=== PATIENT | male | born 1945 | race Caucasian/White ===

== ENCOUNTER 2020-04-21 09:00 | Outpatient (CLI) | payer MEDICARE, SELFPAY ==
--- NOTE | 2020-04-21 11:00 | NEURO_ITS ---
Patient Number: [id number] Impression: # Complains of hand numbness. # Bilateral Carpal Tunnel Syndrome, right more than left. # Left ulnar neuropathy across the elbow. # Abnormal needle/EMG exam in ulnar nerve distribution on the left. # Clinical correlation recommended. Nerve Conduction Studies Anti Sensory Summary Table Stim Site NR Peak (ms) P-T Amp (?V) Site1 Site2 Delta-P (ms) Dist (cm) John (m/s) Left Median Anti Sensory (2-3nd Digit) Wrist 4.1 31.2 Wrist 2-3nd Digit 4.1 14.0 34 Wrist 3.9 22.8 Wrist 2-3nd Digit 4.1 14.0 34 Right Median Anti Sensory (2-3nd Digit) Wrist 4.2 23.3 Wrist 2-3nd Digit 4.2 14.0 33 Wrist 4.1 9.7 Wrist 2-3nd Digit 4.2 14.0 33 Left Radial Anti Sensory (Base 1st Digit) Wrist 2.6 16.3 Wrist Base 1st Digit 2.6 0.0 Right Radial Anti Sensory (Base 1st Digit) Wrist 3.2 7.1 Wrist Base 1st Digit 3.2 0.0 Left Ulnar Anti Sensory (5th Digit) Wrist 3.3 24.7 Wrist 5th Digit 3.3 14.0 42 Right Ulnar Anti Sensory (5th Digit) Wrist 3.3 35.9 Wrist 5th Digit 3.3 14.0 42 Motor Summary Table Stim Site NR Onset (ms) O-P Amp (mV) Site1 Site2 Delta-0 (ms) Dist (cm) John (m/s) Left Median Motor (Abd Poll Brev) Wrist 3.7 4.3 Elbow Wrist 5.9 33.0 56 Elbow 9.6 4.0 Right Median Motor (Abd Poll Brev) Wrist 4.5 2.0 Elbow Wrist 5.5 31.0 56 Elbow 10.0 2.3 Left Ulnar Motor (Abd Dig Minimi) Wrist 3.2 5.6 A Elbow Wrist 6.7 32.0 48 A Elbow 9.9 5.2 B Elbow Wrist 4.8 27.0 56 B Elbow 8.0 4.6 Right Ulnar Motor (Abd Dig Minimi) Wrist 3.1 3.5 A Elbow Wrist 5.9 31.0 53 A Elbow 9.0 2.1 B Elbow Wrist 4.2 23.0 55 B Elbow 7.3 2.9 F Wave Studies NR F-Lat (ms) L-R F-Lat (ms) Left Median (Mrkrs) (Abd Poll Brev) 28.32 0.45 Right Median (Mrkrs) (Abd Poll Brev) 28.77 0.45 Left Ulnar (Mrkrs) (Abd Dig Min) 29.59 0.47 Right Ulnar (Mrkrs) (Abd Dig Min) 29.12 0.47 EMG Side Muscle Nerve Root Ins Act Fibs Amp Dur Recrt Comment Right 1stDorInt Ulnar C8-T1 Nml Nml Nml >12ms Reduced Right Ext Indicis Radial (Post Int) C7-8 Nml Nml Nml Nml Nml Right Ext Digitorum Radial (Post Int) C7-8 Nml Nml Nml Nml Nml Right BrachioRad Radial C5-6 Nml Nml Nml Nml Nml Right PronatorTeres Median C6-7 Nml Nml Nml Nml Nml Right Abd Poll Brev Median C8-T1 Nml Nml Nml Nml Nml Left 1stDorInt Ulnar C8-T1 Nml Nml Nml >12ms Reduced Left Ext Indicis Radial (Post Int) C7-8 Nml Nml Nml Nml Nml Left Ext Digitorum Radial (Post Int) C7-8 Nml Nml Nml Nml Nml Left BrachioRad Radial C5-6 Nml Nml Nml Nml Nml Left PronatorTeres Median C6-7 Nml Nml Nml Nml Nml Left Abd Poll Brev Median C8-T1 Nml Nml Nml Nml Nml Right ABD Dig Min Ulnar C8-T1 Nml Nml Nml >12ms Reduced Left ABD Dig Min Ulnar C8-T1 Nml Nml Nml >12ms Reduced Right Anconeus Radial C7-8 Nml Nml Nml Nml Nml Right Brachialis Musculocut C5-6 Nml Nml Nml Nml Nml Left Anconeus Radial C7-8 Nml Nml Nml Nml Nml Left Brachialis Musculocut C5-6 Nml Nml Nml Nml Nml MTDD
== END 2020-04-21 09:01 | disposition home or self-care (01) ==
PROVIDERS: PCP Internal Medicine; Visit Provider Internal Medicine
DX: G56.03 Carpal tunnel syndrome, bilateral upper limbs (principal); G56.22 Lesion of ulnar nerve, left upper limb
CPT/HCPCS: 95886; 95911

== ENCOUNTER → 2020-12-15 15:11 | Outpatient (CLI) | payer MEDICARE, SELFPAY ==
--- NOTE | ~2020-12-15 | XR_ITS ---
XR chest 2V 12/15/2020 15:30 Indication: Cough. No fever. Procedure: Two-view chest Comparison: 02/15/2019 Findings: There is biapical pleural thickening/scarring, unchanged. No focal air space disease, pulmo nary edema, pleural effusion or suspected pneumothorax. There are linear densities bilaterally in the lung bases which are vertically oriented, likely external to the patient. No definite pleural reflec tion to suggest pneumothorax on PA or lateral views. Impression: 1: No acute cardiopulmonary disease. Reviewed, dictated and finalized at location A. Impression: 1: No acute cardiopulmonary disease.
== END ==
PROVIDERS: PCP Internal Medicine; Visit Provider Internal Medicine
DX: R05 Cough (principal)
CPT/HCPCS: 71046

== ENCOUNTER 2020-12-24 12:53 | Outpatient (CLI) | payer MEDICARE, SELFPAY ==
--- NOTE | ~2020-12-24 | XR_ITS ---
EXAMINATION: XR hip LT min 2V DATE: 12/24/2020 13:57 INDICATION: Left hip pain. TECHNIQUE: 2 views of left hip were obtained. COMPARISON: Left hip radiographs 11/22/2014 FINDINGS: Bone alignment is normal. No fracture. There is moderate left hip osteoarthritis. IMPRESSION: 1. Moderate left hip osteoarthritis. Reviewed, dictated and finalized at location A.
--- NOTE | ~2020-12-24 | XR_ITS ---
EXAMINATION: XR thoracic spine 2V DATE: 12/24/2020 13:57 INDICATION: Back pain. TECHNIQUE: 2 views of thoracic spine were obtained. COMPARISON: Chest 2 views 09/24/2015 FINDINGS: There is kyphosis of thoracic spine. Vertebral body heights are normal. There is mildly dec reased disc height at multiple levels. There are endplate osteophytes at all levels. IMPRESSION: 1. Mild thoracic spondylosis. Reviewed, dictated and finalized at location A.
--- NOTE | ~2020-12-24 | XR_ITS ---
EXAMINATION: XR knee LT 3V DATE: 12/24/2020 13:57 INDICATION: Left knee pain. TECHNIQUE: 3 views of left knee were obtained. COMPARISON: Left knee radiographs 10/02/2006 FINDINGS: Bone alignment is normal. No fracture. There is mild tricompartmental osteoarthritis. No kn ee joint effusion. IMPRESSION: 1. Mild left knee osteoarthritis. Reviewed, dictated and finalized at location A.
--- NOTE | ~2020-12-24 | XR_ITS ---
EXAMINATION: XR hip RT min 2V DATE: 12/24/2020 13:57 INDICATION: Right hip pain. TECHNIQUE: 2 views of right hip were obtained. COMPARISON: Right hip radiographs 11/22/2014 FINDINGS: Bone alignment is normal. No fracture. There is moderate right hip osteoarthritis. IMPRESSION: 1. Moderate right hip osteoarthritis. Reviewed, dictated and finalized at location A.
--- NOTE | ~2020-12-24 | US_ITS ---
EXAMINATION: US carotid duplex BI DATE: 12/24/2020 13:27 INDICATION: Dizziness and giddiness TECHNIQUE: Grayscale, color Doppler, and pulsed Doppler images of the cervical carotid arteries were obtained. The degree of vessel stenosis is placed in one of the following categories: normal, <50%, 5 0-69%, >=70% but less than near-occlusion, near-occlusion, or total occlusion. Note that percent sten osis relative to normal distal artery lumen diameter is indirectly measured from velocity measurement s as described by Juan, et al. Radiology 2003; 229:340-346. COMPARISON: None. FINDINGS: RIGHT: The right common carotid artery (CCA) peak systolic velocity (PSV) is 100 cm/s. The right internal ca rotid artery (ICA) PSV is 93 cm/s. The right ICA end-diastolic velocity (EDV) is 21 cm/s. The right I CA/CCA PSV ratio is 0.9. Grayscale and color Doppler images yield an estimate of <50% diameter reduct ion from plaque in the ICA. The external carotid artery (ECA) PSV is 160 cm/s. There is antegrade magdalena w in the right vertebral artery. LEFT: The left CCA PSV is 94 cm/s. The left ICA PSV is 89 cm/s. The left ICA EDV is 25 cm/s. The left ICA/C CA PSV ratio is 0.9. Grayscale and color Doppler images yield an estimate of <50% diameter reduction from plaque in the ICA. The ECA PSV is 245 cm/s. There is antegrade flow in the left vertebral artery . IMPRESSION: 1. <50% stenosis in the right internal carotid artery. 2. <50% stenosis in the left internal carotid artery. Reviewed, dictated and finalized at location A.
--- NOTE | ~2020-12-24 | US_ITS ---
EXAMINATION: US art doppler w press LE BI DATE: 12/24/2020 13:49 INDICATION: Peripheral vascular disease TECHNIQUE: Segmental pressures and plethysmographic and Doppler waveforms of the brachial and lower e xtremity arteries were obtained. COMPARISON: None. FINDINGS: Right and left brachial artery pressures of 117 mm Hg and 136 mm Hg, respectively, are concordant (no rmal difference <= 30 mmHg). The right and left high-thigh pressure indices are 1.07 and 1.02, respec tively (normal > 1.2). The right ankle-brachial index (ADRYAN) is 1.11 (normal >= 0.9-1). The right great toe-brachial index (T BI) is 0.74 (normal >= 0.6-0.8). The right lower extremity segmental pressure gradients are normal (n ormal gradients <= 20-30 mmHg between adjacent levels on the same leg or the same levels on the two l egs). Arterial waveforms are biphasic at the right posterior tibial artery and triphasic at the remai judah arteries in the right lower limb with brisk systolic upstrokes throughout. The left ADRYAN is 0.93. The left TBI is 0.70. The left lower extremity segmental pressure gradients are increased between the left posterior tibial artery and both the left [id number]-[id number] popliteal artery as well as the contralateral right posterior tibial artery. Arterial waveforms are biphasic with chrissy sk systolic upstrokes throughout the left lower limb. IMPRESSION: 1. Mild aortobiiliac arterial occlusive disease with mildly decreased bilateral high thigh pressure i ndices, borderline left ADRYAN and normal right ADRYAN and bilateral TBIs. Reviewed, dictated and finalized at location A. IMPRESSION: 1. Mild aortobiiliac arterial occlusive disease with mildly decreased bilateral high thigh pressure indices, borderline left ADRYAN and normal right ADRYAN and bila teral TBIs.
--- NOTE | ~2020-12-24 | XR_ITS ---
EXAMINATION: XR knee RT 3V DATE: 12/24/2020 13:57 INDICATION: Right knee pain. TECHNIQUE: 3 views of right knee were obtained. COMPARISON: Right knee radiographs 10/02/2006 FINDINGS: Bone alignment is normal. No fracture. There is mild tricompartmental osteoarthritis. No kn ee joint effusion. IMPRESSION: 1. Mild right knee osteoarthritis. Reviewed, dictated and finalized at location A.
== END 2020-12-24 12:54 | disposition home or self-care (01) ==
LOC: ANHIMG 12:56
PROVIDERS: PCP Internal Medicine; Visit Provider Internal Medicine
DX: I73.9 Peripheral vascular disease, unspecified (principal); M47.894 Other spondylosis, thoracic region; I65.23 Occlusion and stenosis of bilateral carotid arteries; M17.0 Bilateral primary osteoarthritis of knee; M16.0 Bilateral primary osteoarthritis of hip
CPT/HCPCS: 72070; 73502; 73562; 93880; 93923

== ENCOUNTER 2020-12-29 09:09 | Outpatient (CLI) | payer MEDICARE, SELFPAY ==
--- NOTE | 2020-12-29 09:26 | EST_ITS ---
Patient Info Name: Lai Martin Age: 75 years : 1945 Gender: Male Ht: 71 in Wt: 165 lbs BSA: 1.94 m2 Exam Date: 12/29/2020 9:33 AM Exam Location: [facility] Patient Status: Outpatient Admit Date: 12/29/2020 Staff Ordering Physician: Fernando Brown DO Gang Saw Operator: Ivis Ny RDCS Attending Provider: Referring Physician: Kevin LANDIN; Exercise Technologist: Salena Mcdermott CT Exercise Physician: Rupert Fuentes DO Exam Type: CA stress echo Study Info Indications R07.9 - Chest pain, unspecified Treadmill exercise stress echocardiogram is performed. Summary 1. 1. Negative Sánchez exercise stress test for ischemic ST changes by ECG criteria. 2. 2. Reduced functional capacity, achieving 5 METs of workload. 3. 3. Baseline hypertension. 4. 4. Appropriate HR response to exercise. 5. 5. Appropriate HR recovery at 1 minute post exercise. 6. 6. Negative stress echocardiogram for ischemia by wall motion analysis. However, this was suboptimal study. 7. 7. Patient informed of the above results. Stress Echo Findings Left Ventricle Suboptimal study due to poor sonographic images. No obvious wall motion abnormalities. Left Ventricle Normal LV systolic function, no wall motion abnormality. Protocol: Sánchez Stress ECG Details Stage: REST Duration (min): 1 min : 15 sec Speed (mph): 0.0 Grade (%): 0 HR (bpm): 94 SBP (mmHg): 141 DBP (mmHg): 74 METS: --- Stage: REST Duration (min): 31 min : 29 sec Speed (mph): 0.0 Grade (%): 0 HR (bpm): 95 SBP (mmHg): 141 DBP (mmHg): 74 METS: --- Stage: STAGE 1 Duration (min): 1 min : 0 sec Speed (mph): 1.7 Grade (%): 10 HR (bpm): 114 SBP (mmHg): 141 DBP (mmHg): 74 METS: --- Stage: STAGE 1 Duration (min): 2 min : 0 sec Speed (mph): 1.7 Grade (%): 10 HR (bpm): 120 SBP (mmHg): 141 DBP (mmHg): 74 METS: --- Stage: STAGE 1 Duration (min): 3 min : 0 sec Speed (mph): 1.7 Grade (%): 10 HR (bpm): 122 SBP (mmHg): 182 DBP (mmHg): 69 METS: --- Stage: STAGE 2 Duration (min): 0 min : 35 sec Speed (mph): 0.0 Grade (%): 0 HR (bpm): 126 SBP (mmHg): 182 DBP (mmHg): 69 METS: --- Stage: RECOVERY Duration (min): 0 min : 24 sec Speed (mph): 0.0 Grade (%): 0 HR (bpm): 117 SBP (mmHg): 182 DBP (mmHg): 69 METS: --- Stage: RECOVERY Duration (min): 1 min : 24 sec Speed (mph): 0.0 Grade (%): 0 HR (bpm): 102 SBP (mmHg): 182 DBP (mmHg): 69 METS: --- Stage: RECOVERY Duration (min): 2 min : 24 sec Speed (mph): 0.0 Grade (%): 0 HR (bpm): 96 SBP (mmHg): 182 DBP (mmHg): 69 METS: --- Stage: RECOVERY Duration (min): 3 min : 24 sec Speed (mph): 0.0 Grade (%): 0 HR (bpm): 98 SBP (mmHg): 157 DBP (mmHg): 61 METS: --- Stage: RECOVERY Duration (min): 4 min : 24 sec Speed (mph): 0.0 Grade (%)
--- NOTE | 2020-12-29 10:29 | PCCARD ---
EKG CANCELLED DUE TO PATIENT UNABLE TO WAIT
== END 2020-12-29 09:10 | disposition home or self-care (01) ==
PROVIDERS: PCP Internal Medicine; Visit Provider Internal Medicine
DX: R07.9 Chest pain, unspecified (principal)
CPT/HCPCS: 93351

== ENCOUNTER 2021-03-19 00:29 | Day surgery (SDC) | payer MEDICARE, SELFPAY ==
[2021-03-09 14:55] VITALS: BMI 23.1
--- NOTE | 2021-03-19 07:15 | PM.HPGS ---
History of Present Illness History of Present Illness Consent: Risks, benefits, and alternatives have been discussed and questions answered. Patient agrees to proceed with procedure. Chief complaint: neoplam screening Narrative: Lai Martin is a 76 year old male here for colon cancer screening. Review of Systems Review of Systems: All systems reviewed & are unremarkable except as noted in HPI and below PMFSH Social History Social History Smoking packs per day: 1 Smoking cigarettes per day: 20.0 Years smoked: 60 Smoking pack-years: 60.00 Smoking status: Current every day smoker Tobacco type: cigarettes Second hand tobacco smoke exposure: No Alcohol intake: current Drinks per week: 50 Substance use: never Substance use type: does not use Living arrangements: with family Additional living arrangements comments: lives with spouse Gender identity (if verbalized by the patient): Male Sexual Orientation (if Verbalized by the Patient): Straight or Heterosexual Spiritual care concerns: No Meds Home Medications and Allergies Home Medications Medication Instructions Recorded Confirmed Type turmeric root extract 500 mg 500 mg PO DAILY 08/05/19 03/09/21 History capsule multivitamin 1 tablet PO DAILY 02/12/20 03/09/21 History clobetasol 0.05 % lotion 1 applic TOPICAL DAILY PRN #59 ml 08/26/20 03/09/21 Rx primidone 50 mg tablet 50 mg PO BID #180 tablet 08/26/20 03/09/21 Rx azelastine 137 mcg (0.1 %) nasal 2 spray INTRANASAL Q12H #30 ml 11/06/20 03/09/21 Rx spray aerosol diphenhydramine HCl 25 mg capsule 25 mg PO Q6H PRN 11/06/20 03/09/21 History amlodipine 5 mg-benazepril 40 mg 1 cap PO DAILY #90 cap 02/05/21 03/09/21 Rx capsule aspirin 325 mg PO DAILY 03/09/21 03/09/21 History Allergies Allergy/AdvReac Type Severity Reaction Status Date / Time acetic acid Allergy Mild red, Verified 03/19/21 08:48 swelling hydrocortisone Allergy Mild redness, Verified 03/19/21 08:48 swelling Exam Resp: Auscultation: clear to auscultation bilaterally Cardio: Rate: regular rate Rhythm: regular rhythm GI: GI Palp: Yes Soft to palpation and No Tenderness to palpation present (GI) Assessment and Plan Assessment and plan (1) Colon cancer screening: Code(s): Z12.11 - Encounter for screening for malignant neoplasm of colon Status: Acute Assessment and Plan: Colonoscopy with possible biopsy or polypectomy or cautery or injection of substances.
[2021-03-19 08:50] VITALS: BP 139/70; PULSE 88; RESP 16; TEMP 36.2; O2SAT 100; BMI 21.9
[2021-03-19] MEDS: LACTATED RINGERS 1,000 ML 150 ML IV CONT (08:59)
--- NOTE | 2021-03-19 09:21 | WPDANESEPPF ---
Anes - Initial Pre Proc Eval Procedure: Operation Date: 03/19/21 09:30 Proposed Procedures p Screening Colonoscopy - Rojleio Hilliard MD Date/Time: 03/19/21 09:21 Surgeon: Rojelio Hilliard MD Pre Op Diagnosis: neoplam screening Patient Data Age: 76 Gender: M Height: 1.8 m Weight: 71.3 kg Last Vital Signs Temp 97.1 F L 03/19/21 08:50 Pulse 88 03/19/21 08:50 Resp 16 03/19/21 08:50 BP 139/70 03/19/21 08:50 Pulse Ox 100 03/19/21 08:50 Allergies Allergy/AdvReac Type Severity Reaction Status Date / Time acetic acid Allergy Mild red, Verified 03/19/21 08:48 swelling hydrocortisone Allergy Mild redness, Verified 03/19/21 08:48 swelling Home Medications Medication Instructions Recorded Confirmed Type turmeric root extract 500 mg 500 mg PO DAILY 08/05/19 03/19/21 History capsule multivitamin 1 tablet PO DAILY 02/12/20 03/19/21 History clobetasol 0.05 % lotion 1 applic TOPICAL DAILY PRN #59 ml 08/26/20 03/19/21 Rx primidone 50 mg tablet 50 mg PO BID #180 tablet 08/26/20 03/19/21 Rx azelastine 137 mcg (0.1 %) nasal 2 spray INTRANASAL Q12H #30 ml 11/06/20 03/19/21 Rx spray aerosol diphenhydramine HCl 25 mg capsule 25 mg PO Q6H PRN 11/06/20 03/19/21 History amlodipine 5 mg-benazepril 40 mg 1 cap PO DAILY #90 cap 02/05/21 03/19/21 Rx capsule aspirin 325 mg PO DAILY 03/09/21 03/19/21 History Patient hx anesthesia problems: none Family hx anesthesia problems: none PMFSH Social History Social History Smoking packs per day: 1 Smoking cigarettes per day: 20.0 Years smoked: 60 Smoking pack-years: 60.00 Smoking status: Current every day smoker Tobacco type: cigarettes Second hand tobacco smoke exposure: No Alcohol intake: current Drinks per week: 50 Substance use: never Substance use type: does not use Living arrangements: with family Additional living arrangements comments: lives with spouse Gender identity (if verbalized by the patient): Male Sexual Orientation (if Verbalized by the Patient): Straight or Heterosexual Spiritual care concerns: No Anes - Eval Final PreProcedure Day of Procedure 03/19/21 09:21 Patient weight: normal Heart: regular rate and rhythm Lungs: clear to auscultation Airway: Mallampati scale class II Neurological: alert and oriented Last oral intake: >/= 8 hours ASA classification: III Emergent: no Anesthetic plan: proceed Anesthesia type and monitoring: general GIVS and standard monitoring Informed Consent: The patient's anesthetic plan and its attendant risks and benefits were discussed with the patient/family/POA. Questions were solicited and answers provided to the satisfaction of the patient/family/POA.
[2021-03-19 09:50] VITALS: BP 122/66; PULSE 75; RESP 25; O2SAT 97
--- NOTE | 2021-03-19 09:55 | SUR.OPER ---
DR. SERVIN AWARE POLYP AT 30 CM NOT RETRIEVED 03/19/21 @0953. Sushila PRABHAKAR RN & Brendon UMANZOR RN
[2021-03-19 10:00] VITALS: BP 122/66; PULSE 70; RESP 23; O2SAT 98
[2021-03-19 10:10] VITALS: BP 131/80; PULSE 72; RESP 16; O2SAT 98
== END 2021-03-19 10:26 | disposition home or self-care (01) ==
PROVIDERS: PCP Internal Medicine; Visit Provider Internal Medicine Gastroenterology
PROC: 0DJD8ZZ Inspection of Lower Intestinal Tract, Via Natural or Artificial Opening Endoscopic (ICD-10-PCS; CPT 45378; principal; 2021-03-19 09:30)
DX: Z12.11 Encounter for screening for malignant neoplasm of colon (principal); K57.30 Diverticulosis of large intestine without perforation or abscess without bleeding; K63.5 Polyp of colon; F17.210 Nicotine dependence, cigarettes, uncomplicated; Z79.82 Long term (current) use of aspirin
CPT/HCPCS: 45385; 45380; 88305; J2001; J2704; J7120

== ENCOUNTER → 2023-10-03 14:39 | Outpatient (REF) | payer MEDICARE, SELFPAY | LOC: ANHLAB 14:39 | PROVIDERS: PCP Internal Medicine; Visit Provider Plastic Surgery | DX: D48.5 Neoplasm of uncertain behavior of skin (principal) | CPT/HCPCS: 88305 ==

== ENCOUNTER 2023-11-06 15:11 | Outpatient (CLI) | payer MEDICARE, SELFPAY ==
--- NOTE | ~2023-11-06 | CT_ITS ---
EXAMINATION:CT lung screening DATE: 11/06/2023 15:24 INDICATION: Personal history of nicotine dependence. 37.5 pack year history. TECHNIQUE: Computed tomography (CT) of the chest was performed without intravenous contrast. Automate d exposure control and iterative reconstruction technique were employed. The dose-length product (DLP ) was 80.18 mGy-cm. COMPARISON: None. FINDINGS: There is severe emphysema. There is mild scarring at the lung apices. There is mild atelect asis bilaterally. No pleural effusion. The heart size is normal. There are coronary artery calcificat ions. No pericardial effusion. There are bridging endplate osteophytes at multiple levels in the spin e, consistent with diffuse idiopathic skeletal hyperostosis (DISH). There is mild thoracic spondylosi s. IMPRESSION: 1. Lung-RADS category 2: Benign appearance or behavior. Continue annual screening with noncontrast lo w-dose chest CT in 12 months. Reviewed, dictated and finalized at location E. IMPRESSION: 1. Lung-RADS category 2: Benign appearance or behavior. Continue annual screeni ng with noncontrast low-dose chest CT in 12 months.
== END 2023-11-06 15:12 ==
LOC: MICIMG 15:12
PROVIDERS: PCP Internal Medicine Hematology & Oncology; Visit Provider Internal Medicine Hematology & Oncology
DX: Z12.2 Encounter for screening for malignant neoplasm of respiratory organs (principal); Z87.891 Personal history of nicotine dependence
CPT/HCPCS: 71271

== ENCOUNTER → 2023-11-21 15:00 | Outpatient (REF) | payer MEDICARE, SELFPAY | LOC: ANHLAB 15:00 | PROVIDERS: PCP Internal Medicine Hematology & Oncology; Visit Provider Physician Assistant Surgical | DX: C44.612 Basal cell carcinoma of skin of right upper limb, including shoulder (principal) | CPT/HCPCS: 88305 ==

== ENCOUNTER → 2024-01-02 15:21 | Outpatient (REF) | payer MEDICARE, SELFPAY | LOC: ANHLAB 15:21 | PROVIDERS: PCP Internal Medicine; Visit Provider Physician Assistant Surgical | DX: C44.629 Squamous cell carcinoma of skin of left upper limb, including shoulder (principal) | CPT/HCPCS: 88305 ==

== ENCOUNTER → 2024-02-06 10:43 | Outpatient (REF) | payer MEDICARE, SELFPAY | LOC: ANHLAB 10:43 | PROVIDERS: PCP Internal Medicine; Visit Provider Physician Assistant Surgical | DX: C44.622 Squamous cell carcinoma of skin of right upper limb, including shoulder (principal) | CPT/HCPCS: 88305 ==

== ENCOUNTER → 2024-05-21 12:01 | Outpatient (REF) | payer MEDICARE, SELFPAY | LOC: ANHLAB 12:01 | PROVIDERS: PCP Internal Medicine; Visit Provider Physician Assistant Surgical | DX: C44.629 Squamous cell carcinoma of skin of left upper limb, including shoulder (principal) | CPT/HCPCS: 88305 ==

== ENCOUNTER 2025-05-14 09:26 | Outpatient (CLI) | payer MEDICARE, SELFPAY ==
--- OUTSIDE RECORDS SUMMARY | 2024-08-19 09:00 | XMS_ITS ---
Author Organization [facility] Address [address] [place], [place] [id number] Care Team Providers Care Hot Worker Name Role Phone Fernando Brown Primary Care Provider Unavailab DEMETRIS Nolasco Unavailable [phone] Sonido Field Unavailable Unavailable REASON FOR VISIT *General care Encounters Encounter Location Date Provider Diagnosis [facility] [address] [facility] [address] [place], [place] [id number] 08/19/2024 DEMETRIS SMYTH Plan Of Treatment No Information Progress Notes * JAMES GRIFFIN CDOB:1944 (80 yo M)Acc No.[id number]:08/19/2024 Patient: Nelson PAYTON JAMES Donnell Provider: Aylin Smyth DPM :1945 A ge:79 Y S ex:Male Date:08/19/2024 Address:[address] [place], [place] [id number] Pcp:Fernando Brown Subjective: * Chief Complaints: * 1 . *General care. * Medical History: Objective: * Vitals: Assessment: Plan: * Treatment: * Billing Information: * Visit Code: * Procedure Codes: * Electronic signature of DEMETRIS SMYTH DPM on 05/14/2025 at 10:34 AM CDT Sign off status: Pending * Provider: Aylin Smyth DPM Date: 0 08/19/2024 Generated for Printi ng/Faxing/eTransmitting on: 1 10:34 AM CDT
--- OUTSIDE RECORDS SUMMARY | 2025-01-13 08:40 | XMS_ITS ---
Author Organization [facility] Address [address] [place], [place] [id number] Care Team Providers Care Irrigation Equipment Mechanic Name Role Phone Fernando Brown Primary Care Provider Unavailab DEMETRIS Nolasco Unavailable [phone] Sonido Field Unavailable Unavailable REASON FOR VISIT Patient presents for at-risk foot care . The patient has painful toenails that cause difficulty with ambulation and shoegear. The onset is gradual Medications Medication SIG (Take, Route, Frequency, Duration) Notes Start Date End Date Status amlodipine 10 MG Oral Tablet ORAL amlodipine 10 MG Oral TabletOriginal Medicationamlodipine 10 MG Oral Tablet *Reorder from [employer] for eRx and Interaction Alerts* 05/23/2016 Active pantoprazole 40 MG Delayed Release Oral Tablet ORAL pantoprazole 40 MG Delayed Release Oral TabletOriginal Medicationpantoprazole 40 MG Delayed Release Oral Tablet *Reorder from [employer] for eRx and Interaction Alerts* 05/23/2016 Active Encounters Encounter Location Date Provider Diagnosis [facility] [place] [address] [place] [place], [place] [id number] 01/13/2025 DEMETRIS SMYTH Tinea unguium B35.1 ; Pain in right toe(s) M79.674 ; Pain in left toe(s) M79.675 and Atherosclerosis of [place] arteries of extremities with intermittent claudication, right leg I70.211 Assessments Encounter Date Diagnosis (ICD Code) Assessment Notes Treatment Notes Treatment Clinical Notes Section Notes 01/13/2025 Tinea unguium (ICD-10 - B35.1) FUNGAL TOENAILS: Discussed various treatment options for fungal toenails including debridement, topical antifungals, oral antifungals, toenail avulsion, or toenail matrixectomy. NAIL DEBRIDEMENT: Nails 1-5 Bilateral were debrided extensively with nail nippers and emery board, reducing length and girth to pink healthy tissue with any subungual debris and necrotic tissue removed 01/13/2025 Pain in right toe(s) (ICD-10 - M79.674) 01/13/2025 Pain in left toe(s) (ICD-10 - M79.675) 01/13/2025 Atherosclerosis of [place] arteries of extremities with intermittent claudication, right leg (ICD-10 - I70.211) Plan Of Treatment Treatment Notes Assessment Notes Tinea unguium FUNGAL TOENAILS: Discussed various treatment options for fungal toenails including debridement, topical antifungals, oral antifungals, toenail avulsion, or toenail matrixectomy. NAIL DEBRIDEMENT: Nails 1-5 Bilateral were debrided extensively with nail nippers and emery board, reducing length and girth to pink healthy tissue with any subungual debris and necrotic tissue removed Next Appt Details Follow Up: 10-12 Weeks, Reas on: At Risk Foot care, sooner if problems arise Progress Notes * JAMES GRIFFIN CDOB:1944 (80 yo M)Acc No.[id number]:01/13/2025 Patient: NATALYA JENKINSANE Donnell Provider: Aylin Smyth DPM :1945 A ge:79 Y S ex:Male Date:01/13/2025 Address:[address] [place], [place] [id number] Pcp:Fernando Brown Subjective: * Chief Complaints: * 1 . Patient presents for at-risk foot care . The patient has painful toenails that cause difficulty with ambulation and shoegear. The onset is gradual. * HPI: H PI: General care P atient presents to the office for at risk foot care. Patient states that their nails are thickened, elongated and painful. Patient states that it is aggravated by shoe gear. Onset is gradual. Patient denies being diabetic., Patient denies taking blood thinners., Date last seen by Dr. Field was ., Initials mf. sample. * ROS: G eneral / Constitutional: Patient denies c hills, fever, weight loss. ? M usculoskeletal: Patient denies w eakness, broken foot bone. ? P eripheral Vascular: Patient denies p ain / cramping in legs after exertion, ulceration of feet. S kin: Patient complains of f ungal nails, nail changes, eczema, dry skin, athletes foot. N eurologic: Patient denies d izziness, difficulty speaking, confusion, balance difficulty. * Medical History: H ypertension, Arthritis, Anemia, COPD. * Family History: F ather: PRN - Father: . M other: PRN - Mother: :: Hypertension,,known absent . B rother: SIB - Brother: . S ister: SIB - Sister: :: Cancer,,known absent . * Social History: M igrated Social History: M igrated Social History: Smoking Status : Current every day smoker , Alcohol intake : , History of tobacco use : Current every day smoker. S mokes 1 1/4 pack/day History of Alcohol/beer More than 2+ day. * Medications: T aking amlodipine 10 MG Oral Tablet ORAL , Notes to Pharmacist: amlodipine 10 MG Oral TabletOriginal Medicationamlodipine 10 MG Oral Tablet *Reorder from [facility] for eRx and Interaction Alerts*, Taking pantoprazole 40 MG Delayed Release Oral Tablet ORAL , Notes to Pharmacist: pantoprazole 40 MG Delayed Release Oral TabletOriginal Medicationpantoprazole 40 MG Delayed Release Oral Tablet *[facility]*, Medication List reviewed and reconciled with the patient Objective: * Vitals: * Examination: C onstitutional: Constitutional T he patient is awake, alert, well developed, well groomed and well nourished. D ermatologic: Skin findings: S kin is thin, atrophic and lacking pedal hair. Nail pathology: N ails 1, 2, 3, 4, and 5 bilateral are elongated, thick, discolored, and dystrophic with subungual debris. They are painful to palpation. ? V ascular: Dorsalis pedis pulse: 1 /4 b ilateral. Posterior tibial pulse: 0 /4 b ilateral. Capillary refill: g reater than 3 seconds. Edema: N o edema, bilateral. N eurologic: Gross sensation G ross sensation is intact to light touch.? M usculoskeletal: Muscle Strength M uscle strength is 5/5 in regards to dorsiflexion, plantarflexion, inversion, and eversion in bilateral lower extremities. ? Assessment: * Assessment: 1. T inea unguium - B35.1 (Primary) 2 . P ain in right toe(s) - M79.674? 3. P ain in left toe(s) - M79.675 4 . A therosclerosis of [place] arteries of extremities with intermittent claudication, right leg - I70.211 Plan: * Treatment: * Preventive Medicine: Screenings: F all risk screening F all Risk Assessment: N o falls in the past year. * Follow Up: 1 0-12 Weeks (Reason: At Risk Foot care, sooner if problems arise) * Billing Information: * Visit Code: 63722 Office Visit, Est Pt., Level 3. * Procedure Codes: * Electronic signature of DEMETRIS SMYTH DPM on 05/14/2025 at 10:34 AM CDT Sign off status: Pending * Provider: Aylin Smyth DPM Date: 0 01/13/2025 Generated for Nae corcoran/Conner/Saira on: 10:34 AM CDT History and Physical Notes * HPI (History of Present Illness) Category Sub-Category Detail Notes Category Not es HPI General care Patient presents to the office for at risk foot care. Patient states that their nails are thickened, elongated and painful. Patient states that it is aggravated by shoe gear. Onset is gradual. Patient denies being diabetic., Patient denies taking blood thinners., Date last seen by Dr. Field was ., Initials mf sample Examination Category Sub-Category Detail Notes Category Not es Dermatologic Skin findings: Skin is thin, at rophic and lacking pedal hair Nail pathology: Nails 1, 2, 3, 4, an d 5 bilateral are elongated, thick, discolored, and dystrophic with subungual debris. They are painful to palpation Neurologic Gross sensation Gross sensation is intact to light touch Vascular Dorsalis pedis pulse: 1/4 bilateral Edema: No edema, bilateral Capillary refill: greater than 3 secon ds Posterior tibial pulse: 0/4 bilateral Musculoskeletal Muscle Strength Muscle strength is 5/5 in regards to dorsiflexion, plantarflexion, inversion, and eversion in bilateral lower extremities Constitutional Constitutional The patient is a wake, alert, well developed, well groomed and well nourished
--- NOTE | ~2025-05-14 | MR_ITS ---
EXAMINATION: MR lumbar spine wo con DATE: 05/14/2025 10:06 INDICATION: Dorsalgia, unspecified. TECHNIQUE: Magnetic resonance imaging (MRI) of the lumbar spine was performed without intravenous contrast. Sequences included sagittal T2-weighted FSE, sagittal T2-weighted FS FSE, sagittal T1-weighted FSE, and axial T2-weighted FSE. COMPARISON: None FINDINGS: S1 is a transitional segment. Alignment is normal. There is mild chronic anterior wedging of L1 vertebral body. There is mildly decreased disc height at L3-L4 and L4-L5 and severely decreased disc height at L5-S1. The distal spinal cord signal intensity is normal. The conus medullaris is at L1. The following disc levels are specifically discussed: L1-L2: The disc does not extend beyond the endplate margin. There is no facet joint osteoarthritis. There is no neural foraminal stenosis. There is no central canal stenosis. L2-L3: The disc is bulging and has an annular fissure. There is mild left facet joint osteoarthritis. There is mild bilateral neural foraminal stenosis. There is mild central canal stenosis. L3-L4: The disc is bulging and has an annular fissure. There is mild bilateral facet joint osteoarthritis. There is mild bilateral neural foraminal stenosis. There is mild central canal stenosis. L4-L5: The disc is bulging and has an annular fissure. There is mild bilateral facet joint osteoarthritis. There is mild bilateral neural foraminal stenosis. There is mild central canal stenosis. L5-S1: The disc is bulging and has an annular fissure. There is mild bilateral facet joint osteoarthritis. There is moderate bilateral neural foraminal stenosis. There is no central canal stenosis. IMPRESSION: 1. Severe lower lumbar spondylosis. Reviewed, dictated and finalized at location E.
--- NOTE | ~2025-05-14 | XR_ITS ---
XR lumbar spine min 4V Indication: please have pt bend forward and backward Comparison: None Findings: No fracture identified, no subluxation with flexion and extension Moderate to severe loss of disc height throughout most marked at L5-S1 and L4-5. Soft tissues unremarkable Impression: No acute abnormality. Reviewed, dictated and finalized at location P. Impression: No acute abnormality.
--- OUTSIDE RECORDS SUMMARY | 2025-05-14 10:34 | XMS_ITS | Patient Health Record ---
Author Organization [facility] Address [address] [place], [place] [address] Care Team Providers Care Hotbed Operator Name Role Phone WilfredoFernando manuel Primary Care Provider Unavailab DEMETRIS Nolasco Unavailable [phone] Sonido Field Unavailable Unavailable Allergies No Known Allergies Reason For Referral No Information Medications Medication SIG (Take, Route, Frequency, Duration) Notes Start Date End Date Status amlodipine 10 MG Oral Tablet ORAL amlodipine 10 MG Oral TabletOriginal Medicationamlodipine 10 MG Oral Tablet *Reorder from [employer] for eRx and Interaction Alerts* 05/23/2016 Active pantoprazole 40 MG Delayed Release Oral Tablet ORAL pantoprazole 40 MG Delayed Release Oral TabletOriginal Medicationpantoprazole 40 MG Delayed Release Oral Tablet *Reorder from [facility] for eRx and Interaction Alerts* 05/23/2016 Active Immunizations Vaccine Route Administration Date Status Comme nts Influenza, high dose seasonal Unknown 04/27/2023 Admini stered Vital Signs Height-cm 177.80 cm 05/20/2024 Weight-kg 72.57 kg 05/20/2024 Height 70.00 in 05/20/2024 Weight 160 lbs 05/20/2024 BMI 22.96 kg/m2 05/20/2024 Encounters Encounter Location Date Provider Diagnosis [facility] [place] [address] [place], [place] [id number] 01/13/2025 DEMETRIS SMYTH Tinea unguium B35.1 ; Pain in right toe(s) M79.674 ; Pain in left toe(s) M79.675 and Atherosclerosis of [place] arteries of extremities with intermittent claudication, right leg I70.211 [facility] [place] [address] [place], [place] [id number] 05/20/2024 DEMETRIS SMYTH Tinea unguium B35.1 ; Pain in right toe(s) M79.674 ; Pain in left toe(s) M79.675 and Atherosclerosis of [place] arteries of extremities with intermittent claudication, bilateral legs I70.213 Assessments Encounter Date Diagnosis (ICD Code) Assessment Notes Treatment Notes Treatment Clinical Notes Section Notes 05/20/2024 Tinea unguium (ICD-10 - B35.1) FUNGAL TOENAILS: Discussed various treatment options for fungal toenails including debridement, topical antifungals, oral antifungals, toenail avulsion, or toenail matrixectomy. NAIL DEBRIDEMENT: Nails 1-5 Bilateral were debrided extensively with nail nippers and emery board, reducing length and girth to pink healthy tissue with any subungual debris and necrotic tissue removed 05/20/2024 Pain in right toe(s) (ICD-10 - M79.674) 01/13/2025 Tinea unguium (ICD-10 - B35.1) FUNGAL [...] Pain in left toe(s) (ICD-10 - M79.675) 05/20/2024 Pain in left toe(s) (ICD-10 - M79.675) 05/20/2024 Atherosclerosis of [place] arteries of extremities with intermittent claudication, bilateral legs (ICD-10 - I70.213) 01/13/2025 Atherosclerosis of [place] arteries of extremities with intermittent claudication, right leg (ICD-10 - I70.211) Plan Of Treatment No Information Insurance Providers Payer Name Payer Address Payer Phone Subscriber Number Group Number Insured Name Patient Relationship to Insured Coverage Start Date Coverage End Date [employer] [address] [place] [phone] [id number] JAMES GRIFFIN Self - patient is the insured Medical (General) History Medical History History ICD Code hypertension Arthritis anemia COPD
--- OUTSIDE RECORDS SUMMARY | 2025-05-14 10:34 | XMS_ITS | Clinical Summary ---
Author Organization [facility] Petr Shrestha Address [address] [place] [address] Care Team Providers Care Hide Mill Man Name Role Phone Fernando Brown DO Primary Care Provider [phone] Allergies No known active allergies Medications amlodipine besylate/benaze pril (AMLODIPINE-NEMESIO AZEPRIL ORAL) Take 1 Tablet by mouth daily. Pt states is is 5/40mg Active primidone (MYSOLINE) 50 mg tablet Take 50 mg by mouth 2 times daily. Active MULTIVITAMIN ORAL Take 1 Tablet by mouth daily. Active triamcinolone acetonide (KENALOG) 0.1 % Ointment Apply to affected area 1 time daily as needed. Active zinc oxide-hydrocort isone-ketoconaz ole Apply to affected area daily at bedtime. Active tavaborole 5 % Solution With Applicator Apply 1 Application to affected area daily. Active urea 20 % Cream Apply to affected area 2 times daily. Active cyanocobalamin 1,000 mcg Tablet Take 1,000 mcg by mouth daily. Active Active Problems No known active problems Family History Medical History Relation Name Comments No Known Problems Father No Known Problems Mother Uterine Cancer Sister Relation Name Status Comments Brother Alive Daughter Alive Father Mother Sister Alive Son Alive Social History Tobacco Use Types Packs/Day Years Used Date Smoking Tobacco: Every Day Cigarettes 1.5 25 Smokeless Tobacco: Never Tobacco Cessation:Ready to Q uit: Not Asked; Counseling Given: Not Answered Alcohol Use Standard Drinks/Week Comments Yes 56 (1 standard drink = 0.6 oz pu re alcohol) Sex and Gender Information Value Date Recorded Sex Assigned at Not on file Legal Sex Male 7:49 AM CDT Gender Identity Not on file Sexual Orientation Not on file Last Filed Vital Signs Vital Sign Reading Time Taken Comments Blood Pressure 129/68 10/24/2023 2:50 PM CDT Pulse 95 10/24/2023 2:50 PM CDT Temperature 36.6 C (97.9 F) 10/24/2023 2:50 PM CDT Respiratory Rate 20 10/24/2023 2:50 PM CDT Oxygen Saturation 96% 10/24/2023 2:50 PM CDT Inhaled Oxygen Concentration - - Weight 73.8 kg (162 lb 9.6 oz) 10/24/2023 2:50 P M CDT Height 180.3 cm (5' 11) 06/14/2023 10:07 AM RESEARCH NURSE Body Mass Index 22.68 06/14/2023 10:07 AM RESEARCH NURSE Plan of Treatment Health Maintenance Due Date Last Done Comments DTAP/TDAP/TD VACCINES (1 - Tdap) 1964 PNEUMOCOCCAL VACCINE 50+ YEARS (1 of 2 - PCV) 02/14/19 66 ZOSTER VACCINE (1 of 2) 02/15/1996 RSV VACCINE (60+ or ) (1 - 1-dose 75+ series) 2021 INFLUENZA VACCINE (#1) 2025 Insurance [employer] PPO MCR Care Teams Hide Mill Man Relationship Specialty Start Date End Date Fernando Brown DO [address] [facility] [address] [place] [address] PCP - General Internal Medicine 03/22/23
== END 2025-05-14 09:27 | disposition home or self-care (01) ==
PROVIDERS: PCP Internal Medicine; Visit Provider Nurse Practitioner Adult Health
DX: M54.9 Dorsalgia, unspecified (principal); G89.29 Other chronic pain
CPT/HCPCS: 72110; 72148

== ENCOUNTER → 2025-07-02 15:17 | Outpatient (REF) | payer MEDICARE, SELFPAY ==
--- NOTE | 2025-07-02 15:17 | S_PTH ---
PATIENT: Lai Martin [facility][id number] AGE/SX: 80/M ROOM: RE07/02/[address]: Soo Brown MD : 1945 BED: DIS: SPEC #: [id number] RECD: 07/03/25 08:06 STATUS: PAULETTE RESharon #: [id number] YANNI: 07/02/25 15:[address]: Soo Brown DEPT: [facility] Surgical RECD BY: Darlin Wood ENTERED: 07/03/25 08:06 SP TYPE: Surgical OTHR DR: Sonido Field DO Tissues: A - Skin Procedures: Hematoxylin and Eosin Stain Gross and Microscopic Level 4
--- OUTSIDE RECORDS SUMMARY | 2025-07-02 20:20 | XMS_ITS | Clinical Summary ---
Author Organization [facility] Petr Auprince Address [address] [place] [address] Care Team Providers Care Varnisher Plasticoater Name Role Phone Fernando Brown DO Primary Care Provider [phone] Allergies No known active allergies Medications amlodipine [...] 180.3 cm (5' 11) 06/14/2023 10:07 AM TOUR CONSULTANT Body Mass Index 22.68 06/14/2023 10:07 AM TOUR CONSULTANT Plan of Treatment Health Maintenance Due Date Last Done Comments DTAP/TDAP/TD VACCINES (1 - Tdap) 1964 PNEUMOCOCCAL VACCINE 50+ YEARS (1 of 2 - PCV) 02/14/19 [birth year] ZOSTER VACCINE (1 of 2) 02/15/1996 RSV VACCINE (60+ or ) (1 - 1-dose 75+ series) 2021 INFLUENZA VACCINE (#1) 2025 Insurance [employer] PPO MCR Care Teams Varnisher Plasticoater Relationship Specialty Start Date End Date Fernando Brown DO [address] [facility] [address] [place] [address] PCP - General Internal Medicine 03/22/23
== END ==
LOC: ANHLAB 15:17
PROVIDERS: PCP Internal Medicine; Visit Provider Plastic Surgery
DX: C44.92 Squamous cell carcinoma of skin, unspecified (principal)
CPT/HCPCS: 88305